=== PATIENT | male | born 1965 | race Caucasian/White ===

== ENCOUNTER 2025-01-15 23:46 | Emergency (ER) | payer OTHER, SELFPAY ==
[2025-01-15 23:48] VITALS: BP 147/82
--- NOTE | 2025-01-16 01:14 | ED.GENMED ---
History of Present Illness
General
Chief Complaint: Ear Problem
Time Seen by Provider: 01/16/25 01:14
History of Present Illness
History of Present Illness:
TIME OF INITIAL ENCOUNTER: 1:15 AM
HPI: The patient presents with ear pain over the last day or so. Of note, the patient has itchiness to the right earlobe for a couple of years. He has had no fevers. He states he is generally healthy.
EXAM:
GENERAL: Well appearing in no distress
HEENT: Left TM is normal, right TM is very dark and retracted in appearance, there is no evidence of active otitis external either ear.
NEUROLOGIC: Excellent strength all extremities, no obvious coordination deficits
PSYCHIATRIC: Appropriate mental status, normal insight and judgement
EXTREMITIES: Nontender, no edema, moves all extremities equally
SKIN: The skin of both earlobes are very dry
NUMBER AND COMPLEXITY OF PROBLEMS ADDRESSED AT THE ENCOUNTER
� Chronic conditions affecting care: Dry skin
� Acute Exacerbation and/or Progression of Chronic Illness: This is an acute problem
� Differential Diagnosis includes: Otitis externa, otitis media, mastoiditis
AMOUNT AND/OR COMPLEXITY OF DATA TO BE REVIEWED AND ANALYZED
� I performed an independent evaluation of and my interpretation is:
EKG:
CT:
X-rays:
Laboratory Studies:
Other:
� Review of other/old records: The patient was seen here with epididymoorchitis in 2019
� Clinical information was obtained by an independent historian: None needed
� Prescriptions/Medications Considered but not given:
� Further testing considered but not performed:
RISK OF COMPLICATIONS AND/OR MORBIDITY OR MORTALITY OF PATIENT MANAGEMENT
� Social determinants of health affecting care: Lives at home
� Discussion with other providers:
� Escalation of care including admission/observation vs risk of discharge considered: Right TM is abnormal in appearance. Will start amoxicillin. I have also given him contact information for ENT as he has ongoing concerns for
years regarding itchiness to the right earlobe.
ANY OTHER UPDATES:
Past History
Past History
ED Past Medical History: None
ED Past Surgical History: None
Social History
Tobacco: Non-smoker
Alcohol: None
Drug: None
Employment: Employed
Phy Exam
Physical Exam
Physical Exam:
See HPI
Course
Orders/Labs/Results
Orders:
Orders
01/16/25 01:23
Amoxicillin [Amoxil] 1,000 mg PO NOW STA
Vital Signs
Initial and Last Documented VS:
Initial Vital Signs
Temp Pulse Resp BP Pulse Ox
37.1 C 81 18 147/82 97
01/15/25 23:48 01/15/25 23:48 01/15/25 23:48 01/15/25 23:48 01/15/25 23:48
Last Documented Vital Signs
Temp Pulse Resp BP Pulse Ox
37.1 C 81 18 147/82 97
01/15/25 23:48 01/15/25 23:48 01/15/25 23:48 01/15/25 23:48 01/15/25 23:48
*Critical Care Note
Total Time (30-74mins, 75-104mins- exclusive of procedures): Not Applicable
ED Attending Note
-
Portions of this chart may have been created with voice recognition software.� Occasional wrong word or��sound alike� substitutions may have occurred due to the inherent limitations of voice recognition software.
Discharge Plan
Departure
Patient Disposition: Home (Routine Discharge)
Date of Disposition: 01/16/25
Time of Disposition: 01:27
Patient with high blood pressure during this ER visit?: Yes
Discharge Problem:
Otitis media
Instructions: Otitis media with effusion
Prescriptions:
New
amoxicillin 500 mg capsule
1,000 mg PO TID Qty: 21 0RF
Referrals:
Kermit Carrington MD [Active] - Follow up in 2-3 days
Activity Restrictions/Additional Instructions:
The appearance of the right eardrum is very dark and retracted. We can try antibiotics. The left eardrum is normal. Given the ongoing concerns of itchiness, I have also given you the contact information for a local ENT physician, Dr. Carrington. I
sent a prescription to the [facility] on [id number]
Interventions
Interventions:
*Risk Screen - Suicide Last Done: 01/15/25 23:48
*General Assessment Last Done: 01/15/25 23:48
*Neglect/Abuse Screening Last Done: 01/15/25 23:48
*ED- Fall Risk Assessment Last Done: 01/15/25 23:52
*ED COVID-19 Vaccine History Last Done: 01/15/25 23:52
Discharge Date and Time
Print Language: FRENCH
[2025-01-16] MEDS: AMOXIL 1000 MG PO (01:33)
== END 2025-01-16 01:50 | disposition home or self-care (01) ==
LOC: EMR 23:46
PROVIDERS: EMERGENCY PHYSICIAN Emergency Medicine
DX: H66.91 Otitis media, unspecified, right ear (principal)
CPT/HCPCS: 99283